=== PATIENT | female | born 2000 | race African-American/Black ===

== ENCOUNTER 2023-04-29 18:26 | Emergency (ER) | payer SELFPAY ==
[~2023-04-29] VITALS: Ht 162.6 cm; Wt 66.0 kg
[2023-04-29 18:35] VITALS: O2SAT 100
[2023-04-29] MEDS ORDERED: GUAI180L5 MT (19:50)
[2023-04-29 20:12] VITALS: BP 124/78; PULSE 90; RESP 16; TEMP 98.4
== END 2023-04-29 20:16 | disposition home or self-care (01) ==
LOC: ER 18:26
DX: J06.9 Acute upper respiratory infection, unspecified (principal)
CPT/HCPCS: 99282